=== PATIENT | female | born 1945 | race Caucasian/White ===

== ENCOUNTER 2024-10-02 09:34 | Outpatient (RCR) | payer MEDICARE, SELFPAY | END 2024-11-09 06:59 | disposition home or self-care (01) | LOC: PT 09:34 | PROVIDERS: Visit Provider Nurse Practitioner Family | DX: R26.89 Other abnormalities of gait and mobility (principal) | CPT/HCPCS: 97110; 97112; 97140; 97162; 97530 ==

== ENCOUNTER 2024-12-17 19:54 | Emergency (ER) | payer MEDICARE, SELFPAY ==
[2024-12-17 20:01] VITALS: BP 141/69; PULSE 65; TEMP 36.8; O2SAT 96; BMI 34.7
[2024-12-17 20:21] LABS: Glucose Urine UA NEGATIVE (NEGATIVE)
[2024-12-17 20:28] LABS: Cast Seen? NONE SEEN #/LPF (NONE SEEN); Crystals Seen? None Seen #/HPF (None Seen); Urine Culture Indicated YES-FRMC
--- NOTE | 2024-12-17 22:01 | ED.GENADUL1 ---
HPI HPI - General Adult General Chief complaint: Urogenital-Female Stated complaint: FREQUENT URNATION Time Seen by Provider: 12/17/24 20:32 Source: patient Mode of arrival: walk-in History of Present Illness HPI narrative: The patient is a de 79-year-old female with a history of high blood pressure who presents to the emergency department secondary for concerns of a urinary tract infection. Today, the patient states that she has urgency and frequency. She can barely hold her urine. She does not have any dysuria. She has no fever or chills. No nausea or vomiting. No flank pain. Patient states nothing in particular makes it worse or better. Patient states that this symptoms that she is having today are reminiscent of her previous urinary tract infections. Related Data Previous Rx's ?Medication ?Instructions ?Recorded cephalexin 500 mg capsule 500 mg PO QID 7 days #28 caps 12/17/24 phenazopyridine 100 mg tablet 100 mg PO TID PRN pain, urgency #6 12/17/24 (Pyridium) tabs Allergies Allergy/AdvReac Type Severity Reaction Status Date / Time amlodipine (From Lotrel) Allergy Severe Swelling Verified 12/17/24 20:08 of Lip/Tongue/Throat benazepril (From Lotrel) Allergy Severe Swelling Verified 12/17/24 20:08 of Lip/Tongue/Throat Review of Systems ROS Status of ROS 10 or more systems reviewed and unremarkable except as noted in history and below PFSH PFS Social History Little interest or pleasure in doing things: not at all Feeling down, depressed, or hopeless: not at all Exam Narrative Exam Narrative: Prior to examining the patient, I have washed with hospital approved and provided Antiseptic Hand Pool Cleaner and have also applied gloves.? Prior to touching the patient, I asked for consent to examine the patient.? General: Alert and oriented, well nourished, mild distress. Eye: PERRL, EOMI, normal conjunctiva. HENT: Normocephalic, normal hearing, moist oral mucosa, no scleral icterus, Lungs: Clear to auscultation and percussion, non-labored respiration. No rhonchi, rales, wheezing Heart: Normal rate, regular rhythm, no murmur, gallop or edema. Abdomen: Soft, non-tender, non-distended, normal bowel sounds, no masses. Musculoskeletal: Normal range of motion and strength, no tenderness or swelling. Skin: Skin is warm, dry and pink, no rashes or lesions. Neurologic: Awake, alert, and oriented X3, CN II-XII intact. Psychiatric: Cooperative, appropriate mood and affect.? Following the conclusion of the examination, I have washed my hands thoroughly after removing examination gloves. Constitutional Vital Signs, click to edit/add: Last Vital Signs Temp 98.3 F 12/17/24 20:01 Pulse 65 12/17/24 20:01 Resp 16 12/17/24 20:01 BP 141/69 12/17/24 20:01 Pulse Ox 96 12/17/24 20:01 O2 Del Method Room Air 12/17/24 20:01 Course Course Hospital Course: The patient is a very pleasant 79-year-old female who presents to the emergency room for concerns of a urinary tract infection, with a symptoms of urinary urgency and frequency. Urine analysis confirms evidence of a urinary tract infection. Patient was given her first dose of antibiotics and a dose of Pyridium in the emergency department. Patient would like her prescriptions called into [facility]. Vital Signs Vital signs: Vital Signs Temperature 98.3 F 12/17/24 20:01 Pulse Rate 65 12/17/24 20:01 Respiratory Rate 16 12/17/24 20:01 Blood Pressure 141/69 12/17/24 20:01 Pulse Oximetry 96 12/17/24 20:01 Oxygen Delivery Method Room Air 12/17/24 20:01 Temperature 98.3 F 12/17/24 20:01 Pulse Rate 65 12/17/24 20:01 Respiratory Rate 16 12/17/24 20:01 Blood Pressure 141/69 12/17/24 20:01 Pulse Oximetry 96 12/17/24 20:01 Oxygen Delivery Method Room Air 12/17/24 20:01 Medical Decision Making MDM Narrative Medical decision making narrative: The patient is a de 79-year-old female with a history of high blood pressure who presents to the emergency department secondary for concerns of a urinary tract infection. Today, the patient states that she has urgency and frequency. She can barely hold her urine. She does not have any dysuria. She has no fever or chills. No nausea or vomiting. No flank pain. Patient states nothing in particular makes it worse or better. Patient states that this symptoms that she is having today are reminiscent of her previous urinary tract infections. Urine analysis confirms evidence of a urinary tract infection. Patient was given her first dose of antibiotics and a dose of Pyridium in the emergency department. Patient would like her prescriptions called into [facility]. Differential Diagnosis Differential Diagnosis: UTI, constipation, hemorrhagic cystitis, dehydration Medical Records Medical records reviewed: Yes I reviewed the patient's medical records Lab Data Lab results reviewed: Yes I reviewed the patient's lab results Labs: Lab Results 12/17/24 Range/Units 20:10 Urine Color Yellow (YELLOW) Urine Clarity Clear (CLEAR) Urine pH 5.5 (5.0-9.0) Ur Specific [place] 1.025 (1.005-1.025) Urine Protein Negative (NEG/TRACE) mg/dL Urine Glucose (UA) Negative (NEGATIVE) mg/dL Urine Ketones Trace A (NEGATIVE) mg/dL Urine Occult Blood Moderate A (NEGATIVE) Urine Nitrite Negative (NEGATIVE) Urine Bilirubin Negative (NEGATIVE) Urine Urobilinogen 1.0 (0.2-1.0) EU/dL Ur Leukocyte Esterase Small A (NEGATIVE) Urine RBC 0-2 (0-2) #/HPF Urine WBC 5-10 A (NONE SEEN) #/HPF Ur Squamous Epith Cells Few A (NONE/RARE) #/LPF Ur Transition Epith Cell Few A (NONE SEEN) #/LPF Urine Crystals None seen (None Seen) #/HPF Urine Bacteria Small A (NONE SEEN) #/HPF Urine Casts None seen (NONE SEEN) #/LPF Urine Mucus None seen (NONE SEEN) [place] [place] exhibiting signs of a urinary tract infection per her urine. It is sent for culture for analysis. Discharge Plan Discharge Chief Complaint: Urogenital-Female Clinical Impression: Urinary tract infection Patient Disposition: Home, Self-Care Time of Disposition Decision: 22:08 Condition: Good Mode of Transportation: Private Vehicle Prescriptions / Home Meds: New cephalexin 500 mg capsule 500 mg PO QID 7 Days Qty: 28 0RF phenazopyridine [Pyridium] 100 mg tablet 100 mg PO TID PRN (Reason: pain, urgency) Qty: 6 0RF Print Language: Nigerian Instructions: Urinary Tract Infection in Women (ED) Additional Instructions: Thank you for trusting me with your care today. I hope that you have an amazing day. Feel better soon. Referrals: MELODIE HUIZAR [Primary Care Provider, Unknown] - 1 week Discharge Date/Time: 12/17/24 22:34
[2024-12-17] MEDS: PHENAZOPYRIDINE 100 MG TABLET PO (22:22)
[2024-12-17] MEDS: CEPHALEXIN 500 MG CAPSULE PO (22:22)
== END 2024-12-17 22:34 | disposition home or self-care (01) ==
PROVIDERS: Emergency Provider Emergency Medicine; PCP Nurse Practitioner Family
DX: N39.0 Urinary tract infection, site not specified (principal); R35.0 Frequency of micturition; R39.15 Urgency of urination
CPT/HCPCS: 81001; 87086; 87088; 87186; 99284

== ENCOUNTER 2025-01-25 09:05 | Outpatient (OUT) | payer MEDICARE, SELFPAY ==
--- NOTE | 2025-01-25 | XR_ITS ---
The [address] [address] Patient Name: WILMA SHETH MRN: [id number] date: 1945 Sex: F Assigned Patient Location: [facility] Current Patient Location: [facility] Accession/Order Number: [id number] Exam Date: 01/25/2025 09:12 Report Date: 01/25/2025 10:02 At the request of: MARCOS DONOVAN MD Procedure: XR hip LT 1V w/ pelvis WEIGHTBEARING AP LOW PELVIS AND LEFT HIP - 2 views COMPARISON: None CLINICAL DATA: Left hip pain radiating down the leg for the past couple months. No injury. AP view of the low pelvis and frog-lateral view of the left hip were obtained. There is osteopenia. No acute fractures or dislocation are noted. There is slight pelvic tilt with the left side higher than the right. The hip joint spaces are symmetric. There is no prominent hypertrophy. The imaged SI joints are intact. No soft tissue abnormalities are identified. XR/XR hip LT 1V w/ pelvis IMPRESSION: NO ACUTE BONY FINDINGS. Impression dictated by: Areli Brower M.D. 01/25/2025 10:02 AM Dictation Location: [facility] Electronically authenticated by: [id number] Date: 01/25/2025 10:02
== END 2025-01-25 09:06 | disposition home or self-care (01) ==
LOC: RAD 09:05
PROVIDERS: PCP Nurse Practitioner Family; Visit Provider Orthopaedic Surgery
DX: M25.552 Pain in left hip (principal)
CPT/HCPCS: 73501